=== PATIENT | male | born 1955 | race Caucasian/White ===

== ENCOUNTER 2021-02-26 11:08 | Emergency (ER) | payer OTHER, SELFPAY ==
[2021-02-26] VITALS (7 sets, daily range): BP systolic 133–149; BP diastolic 68–90; PULSE 71–100; RESP 16–18; TEMP 36.2; O2SAT 97–100; BMI 23.6
--- NOTE | 2021-02-26 11:26 | EKG12_ITS ---
Test Reason : ABDOMINAL PAIN Blood Pressure : / mmHG Vent. Rate : 072 BPM Atrial Rate : 312 BPM P-R Int : 000 ms QRS Dur : 128 ms QT Int : 448 ms P-R-T Axes : 000 008 119 degrees QTc Int : 490 ms Sinus rhythm Left bundle branch block Abnormal ECG Confirmed by ALEC CAMPOS, NERY ([id number]), slot editor ROCIO DAWKINS ([id number]) on 03/01/2021 8:01:56 AM Referred By: LEEANNA Confirmed By:ERNIE MICHAEL MD
--- NOTE | 2021-02-26 11:27 | EDS_ITS ---
HPI HPI - GI History of Present Illness Chief Complaint: Abd Pain Narrative Narrative: 65-year-old male presenting with nausea/vomiting as well as epigastric pain which started this morning. He states he ate beans, eggs, salsa, beef for breakfast. He states he ate this every day. Afterwards he vomited. He states that initially had some pain across the upper abdomen and radiated to his back. Patient states he only drinks 2 glasses of wine daily. He did not have any pain last night while drinking. No history of pancreatitis or gallbladder disease. He does have a history of hypertension and three-vessel CABG distantly. He states he is only on losartan for high blood pressure. Patient denies fever or chills. He denies diarrhea or constipation. He denies urinary complaints. He denies chest pain or shortness of breath. [facility] Medical History HTN (hypertension) Home Medications losartan mg PO DAILY 06/18/14 [History Last Taken Unknown] Allergy/AdvReac Type Severity Reaction Status Date / Time No Known Allergies Allergy Verified 06/18/14 01:15 Surgical History History of open heart surgery Social History Smoking Status: Former smoker ROS ROS ED Constitutional Constitutional ED: Denies chills, fever(s) or sweats ENT ENT ED: Denies rhinorrhea or sore throat Cardiovascular Cardiovascular: Denies chest pain or palpitations Respiratory/Chest Respiratory/Chest: Denies cough, dyspnea or sputum Gastrointestinal Gastrointestinal: Reports abdominal pain and vomiting; Denies constipation or diarrhea Genitourinary Genitourinary ED: Denies dysuria or hematuria Musculoskeletal Musculoskeletal: Denies arthralgias, back pain, myalgias or neck pain Integumentary Denies Abrasions or rash Neurologic Neurologic: Denies headache(s) or paresthesias EXAM Physical Exam Const Vital Signs: 02/26/21 11:08 02/26/21 13:42 02/26/21 15:00 Temperature 97.1 F L Temperature Source Temporal Pulse Rate 83 71 Respiratory Rate 18 18 16 Blood Pressure 149/68 H 133/73 H Blood Pressure Mean 95 93 Pulse Ox 100 99 Oxygen Delivery Method Room Air Room Air 02/26/21 15:56 02/26/21 17:00 Temperature Temperature Source Pulse Rate 74 Respiratory Rate 18 16 Blood Pressure 137/72 H Blood Pressure Mean 93 Pulse Ox 97 Oxygen Delivery Method Room Air Positive well nourished General Appearance ED: NAD HEENT Reports moist mucous membranes normocephalic and atraumatic Eyes PERRL and EOMs intact bilaterally General Eye ED: Negative for pale conjunctiva or scleral icterus Resp normal respiratory effort and clear to auscultation bilaterally Cardio regular rate and regular rhythm GI non-distended Palpation: soft and tender epigastric Extremity full ROM General Extremety ED: Negative for edema or tenderness General Extremity: Negative for edema Neuro CN's II-XII intact bilaterally and no sensory deficits noted Sensorium / Orientation: alert, oriented to person, oriented to place and oriented to time Motor Exam: strength 5/5 throughout Psych mental status grossly normal and thought process normal Skin No no wounds General Skin Exam: Negative for jaundice Lesions: no lesions Rashes: no rashes MDM MDM MDM Narrative Medical decision making narrative: Patient presenting with epigastric pain as well as nausea and vomiting. He states this started this morning and last night he was well. Given the location of his pain I did check an EKG which on my interpretation shows sinus rhythm with a ventricular rate of 72 bpm with left bundle branch block pattern. I do not have any previous EKGs to compare this to. Troponin is 6. CBC shows his white blood cell count is 9.4, hemoglobin 14.1, hematocrit 42.7 platelets 183. Renal function and electrolytes are normal. LFTs are elevated with his bilirubin being 1.4, AST 47. Lipase is 23,000 496. EtOH is negative. Chest x-ray on my interpretation shows bibasilar interstitial opacities and the radiologist does agree. I did job placement counselor the patient of the findings and he states that he was just tested last week and was negative. He does not have a respiratory complaint. Patient's ultrasound shows dilation of the pancreatic and common bile duct. CT of the abdomen pelvis shows pancreatitis and a small left inguinal hernia which is not incarcerated acute BMP patient was discussed with Dr. Arias who stated that she would for the patient not be kept at [facility] because she cannot perform ERCP. Patient was consented for transfer. There was a delay in his care and he required multiple doses of morphine for pain control. Patient was accepted to [facility] and will be transferred in stable condition. Impression: 1. Acute pancreatitis 2. Dilated common bile duct 3. Dilated pancreatic duct 4. Left inguinal hernia Lab Data Labs: Laboratory Results - last 24 hr 02/26/21 02/26/21 02/26/21 11:23 11:23 11:44 WBC 9.4 RBC 4.41 L Hgb 14.1 Hct 42.7 MCV 96.8 H MCH 32.0 MCHC 33.0 RDW Std Deviation 43.6 RDW Coeff of Beatriz 12.1 Plt Count 183 MPV 10.2 Immature Gran % (Auto) 0.300 Neut % (Auto) 83.3 H Lymph % (Auto) 10.1 L [place] % (Auto) 6.0 Eos % (Auto) 0.1 Baso % (Auto) 0.2 Absolute Neuts (auto) 7.9 H Absolute Lymphs (auto) 0.95 Nucleated RBC % 0 Sodium 135 L Potassium 3.9 Chloride 102 Carbon Dioxide 25.0 Anion Gap 8 BUN 15 Creatinine 0.78 Estim Creat Clear Calc 98.79 Est GFR (MDRD) Af Amer 129 Est GFR (MDRD) Non-Af 106 BUN/Creatinine Ratio 19.2 Glucose 174 H Calcium 9.0 Total Bilirubin 1.40 H AST 47 H ALT 30 Alkaline Phosphatase 75 Troponin I High Sens 6 Total Protein 8.1 Albumin 3.8 Globulin 4.3 H Albumin/Globulin Ratio 0.9 Lipase 73919 H Ethyl Alcohol 02/26/21 11:44 WBC RBC Hgb Hct MCV MCH MCHC RDW Std Deviation RDW Coeff of Beatriz Plt Count MPV Immature Gran % (Auto) Neut % (Auto) Lymph % (Auto) [place] % (Auto) Eos % (Auto) Baso % (Auto) Absolute Neuts (auto) Absolute Lymphs (auto) Nucleated RBC % Sodium Potassium Chloride Carbon Dioxide Anion Gap BUN Creatinine Estim Creat Clear Calc Est GFR (MDRD) Af Amer Est GFR (MDRD) Non-Af BUN/Creatinine Ratio Glucose Calcium Total Bilirubin AST ALT Alkaline Phosphatase Troponin I High Sens Total Protein Albumin Globulin Albumin/Globulin Ratio Lipase Ethyl Alcohol < 3.0 Radiography Diagnostic Testing: Radiology Impression Chest X-Ray 02/26/21 11:45 IMPRESSION: Bilateral basal interstitial opacities, probably viral/Covid pneumonia. Electronically Signed: Akanksha Henson MD at 12:25 EDT Tel , Service support , Gallbladder Ultrasound 02/26/21 12:09 IMPRESSION: Mild dilatation of the pancreatic and common bile duct. The gallbladder is distended but there is no evidence of cholelithiasis or cholecystitis. If indicated further evaluation with MRCP may be beneficial. at 1418 Reported and signed by: Dewayne Parson MD Electronically Signed: Dewayne Parson MD at 14:17 EDT Tel , Service support , Abdomen/Pelvis CT 02/26/21 14:22 IMPRESSION: 1. Inflammation surrounding the pancreas compatible with acute pancreatitis. There are no focal fluid collections identified. 2. Left inguinal hernia which contains a portion of the colon within the hernia sac. There is no obstruction. Individualized dose optimization techniques were used for this CT. at 1605 Reported and signed by: Dewayne Parson MD Electronically Signed: Dewayne Parson MD at 16:04 EDT Tel , Service support , Discharge Plan Triage Chief Complaint: Abd Pain ED Provider: Refugio Pearce Dx/Rx/DC Orders Prescriptions: No Action losartan 25 MG tablet PO DAILY RF: 0 Primary Care Provider: Ricardo Phillip
[2021-02-26 11:28] LABS: Absolute Lymphocyte Count 0.95 X10^3/uL (0.83-4.51); Absolute Neutrophil Count 7.9 X10^3/uL (2.0-7.7); Basophil# 0.02 X10^3/uL; Basophil% 0.2 % (0-1); Eosinophil# 0.01 X10^3/uL; Eosinophils% 0.1 % (0-5); Hematocrit 42.7 % (40-54); Hemoglobin 14.1 g/dL (13.0-16.5); Lymphocyte # 0.95 X10^3/ul (0.83-4.51); Lymphocyte % 10.1 % (19-41); Mean Corpuscular Volume 96.8 fL (80-94); Mean Platelet Vol. 10.2 fl (6.2-12.0); Monocyte# 0.57 X10^3/uL; NRBC Flagged by Analyzer 0 % (0-5); Neutrophil # 7.85 X10^3/uL (2.7-7.7); Neutrophil % 83.3 % (47-70); Platelet Count 183 K/mm3 (150-450); RBC Distribution Width CV 12.1 % (11.6-14.6); RBC Distribution Width SD 43.6 fl (35.1-43.9); Red Blood Count 4.41 M/mm3 (4.6-6.2); White Blood Count 9.4 K/mm3 (4.4-11.0)
[2021-02-26] MEDS: 0.9% Normal Saline 1,000 ML 1000 ML IV (11:30)
[2021-02-26] MEDS: Morphine 4 MG/ML Syringe IV ×3 (11:30→15:56)
[2021-02-26] MEDS: Ondansetron 4 MG/2 ML Vial IV (11:30)
--- NOTE | 2021-02-26 11:45 | RAD_ITS ---
STUDY: X-RAY CHEST REASON FOR EXAM: Male, 65 years old. epigastric pain TECHNIQUE: Frontal portable view of the chest COMPARISON: None. FINDINGS: There are irregular interstitial opacities bilaterally in the lower lung bases. There is no pneumothorax, pulmonary edema or pleural effusions. The heart is mildly enlarged with prior sternotomy. Left atrial appendage is surgically excluded. RAD/Chest 1 View (Portable) IMPRESSION: Bilateral basal interstitial opacities, probably viral/Covid pneumonia. Electronically Signed: Akanksha Henson MD at 12:25 EDT Tel , Service support ,
[2021-02-26 11:59] LABS: ALB/GLOB Ratio 0.9 RATIO (0.9-2.4); AST(SGOT) 47 U/L (15-37); Alanine Aminotransfer ALT/SGPT 30 U/L (16-61); Albumin, Serum 3.8 g/dL (3.2-5.0); Alkaline Phosphatase 75 U/L (45-117); Anion Gap 8 (5-15); BUN 15 mg/dL (7-18); BUN/Creat Ratio 19.2 RATIO (10-20); Chloride 102 mmol/L (98-107); Creatinine, Serum 0.78 mg/dL (0.70-1.30); EST Glomerular Filtration Rate 106 mL/min (>60); Est Glom Filt Rate - Afr Amer 129 mL/min (>60); Estimated Creatinine Clearance 98.79 ml/min; Globulin 4.3 g/dL (2.2-4.2); Glucose 174 mg/dL (74-106); Lipase 23496 U/L (73-393); Potassium 3.9 mmol/L (3.5-5.1); Protein, Total 8.1 g/dL (6.4-8.2); Sodium Level 135 mmol/L (136-145)
--- NOTE | 2021-02-26 12:09 | US_ITS ---
EXAM: US ABDOMEN LIMITED, RIGHT UPPER QUADRANT : 1955 CLINICAL INDICATION: RUQ pain TECHNIQUE: Real-time ultrasound of the right upper quadrant with image documentation. This report was created using [employer] report generation technology. COMPARISON: None. FINDINGS: LIVER: Liver measures 18.8 cm. There is normal echotexture. No intrahepatic biliary ductal dilation. GALLBLADDER: Gallbladder is distended. The gallbladder wall measures 2 mm. No shadowing gallstone. No pericholecystic fluid. Negative sonographic Hall's sign. COMMON BILE DUCT: Common bile duct measures 7 mm. The proximal common bile duct is within normal limits for the patient's age. PANCREAS: Pancreatic duct is dilated measuring 4 mm. RIGHT KIDNEY: The right kidney measures 10.7 x 4.6 x 5.3 cm. There is no hydronephrosis. No shadowing calculus. No focal lesion or perinephric collection is demonstrated. US/Gallbladder IMPRESSION: Mild dilatation of the pancreatic and common bile duct. The gallbladder is distended but there is no evidence of cholelithiasis or cholecystitis. If indicated further evaluation with MRCP may be beneficial. at 1418 Reported and signed by: Dewayne Parson MD Electronically Signed: Dewayne Parson MD at 14:17 EDT Tel , Service support ,
[2021-02-26 12:15] LABS: Troponin-I HS 6 pg/mL (3.0-78.0)
[2021-02-26 12:21] LABS: Alcohol, Blood (Medical)-Serum < 3.0 mg/dL
--- NOTE | 2021-02-26 14:22 | CT_ITS ---
EXAM: CT ABDOMEN AND PELVIS WITH INTRAVENOUS CONTRAST : 1955 CLINICAL INDICATION: abdominal pain TECHNIQUE: Helically acquired images were obtained of the abdomen and pelvis with intravenous contrast. This CT exam was performed using one or more of the following dose reduction techniques: automated exposure control, adjustment of the mA and/or kV according to patient size, and/or use of iterative reconstruction technique. This report was created using [employer] report generation technology. CONTRAST: IV 100mL Isovue-300 COMPARISON: None. FINDINGS: LOWER THORAX: There is mild airspace disease in the left base. No cardiomegaly. No significant pericardial effusion. ABDOMEN: LIVER: Unremarkable. Homogeneous. No focal mass. GALLBLADDER AND BILE DUCTS: Unremarkable. No calcified gallstones. No gallbladder distention or wall edema. No intra- or extrahepatic biliary ductal dilation. PANCREAS: See below. SPLEEN: Unremarkable. Normal size without focal cystic or solid mass. ADRENALS: Unremarkable. No nodules. KIDNEYS AND URETERS: Unremarkable. Normal renal size and position. No hydronephrosis. STOMACH AND BOWEL: There is a left inguinal hernia which Eanes a portion of the colon within the hernia sac. No stomach or bowel distention. No focal inflammatory change. PELVIS: APPENDIX: No evidence of acute appendicitis. BLADDER: Unremarkable. REPRODUCTIVE: Unremarkable as visualized. No mass. ABDOMEN and PELVIS: INTRAPERITONEAL SPACE: There is inflammation surrounding the pancreas. There is a trace amount of free fluid compatible with pancreatitis. There is no focal fluid collection identified. No free air. BONES/JOINTS: There is beam hardening artifact in the pelvis due to a right hip prosthesis. No suspicious lytic or blastic abnormality. SOFT TISSUES: See above. VASCULATURE: Unremarkable. Abdominal aorta is non-dilated. LYMPH NODES: Unremarkable. No enlarged lymph nodes. CT/Abdomen/Pelvis W IV Cont ONLY IMPRESSION: 1. Inflammation surrounding the pancreas compatible with acute pancreatitis. There are no focal fluid collections identified. 2. Left inguinal hernia which contains a portion of the colon within the hernia sac. There is no obstruction. Individualized dose optimization techniques were used for this CT. at 1605 Reported and signed by: Dewayne Parson MD Electronically Signed: Dewayne Parson MD at 16:04 EDT Tel , Service support ,
== END 2021-02-26 20:59 | disposition short-term general hospital (02) ==
PROVIDERS: Emergency Provider Student in an Organized Health Care Education/Training Program; PCP Family Medicine
DX: K85.90 Acute pancreatitis without necrosis or infection, unspecified (principal); K40.90 Unilateral inguinal hernia, without obstruction or gangrene, not specified as recurrent; K83.8 Other specified diseases of biliary tract; I10 Essential (primary) hypertension; Z95.1 Presence of aortocoronary bypass graft; Z79.899 Other long term (current) drug therapy; Z87.891 Personal history of nicotine dependence
CPT/HCPCS: 71045; 74177; 76705; 80053; 82077; 83690; 84484; 85025; 87426; 93005; 96361; 96374; 96375; 96376; 99285; J7030; Q9967; A4216; J2405

== ENCOUNTER 2021-09-29 19:19 | Emergency (ER) | payer OTHER, SELFPAY ==
[2021-09-29 19:20] VITALS: BP 160/75; PULSE 84; RESP 18; TEMP 35.9; O2SAT 99; BMI 24.7
--- NOTE | 2021-09-29 19:41 | EKG12_ITS ---
Test Reason : EPIGASTRICPAIN Blood Pressure : / mmHG Vent. Rate : 085 BPM Atrial Rate : 085 BPM P-R Int : 220 ms QRS Dur : 126 ms QT Int : 434 ms P-R-T Axes : 070 028 096 degrees QTc Int : 516 ms Sinus rhythm with 1st degree A-V block with Premature atrial complexes Left bundle branch block Abnormal ECG Confirmed by ROMEO CAMPOS, LIA ([id number]), news videotape editor RICKI SHINE ([id number]) on 10/05/2021 11:02:48 AM Referred By: Confirmed By:LIA WALTERS MD
[2021-09-29] MEDS: Ketorolac 15 MG/ML Vial IV (19:46)
[2021-09-29] MEDS: Ondansetron 4 MG/2 ML Vial IV (19:46)
[2021-09-29 19:51] LABS: Absolute Lymphocyte Count 0.75 X10^3/uL (0.83-4.51); Absolute Neutrophil Count 6.2 X10^3/uL (2.0-7.7); Basophil# 0.02 X10^3/uL; Basophil% 0.3 % (0-1); Hematocrit 41.1 % (40-54); Hemoglobin 13.8 g/dL (13.0-16.5); Lymphocyte # 0.75 X10^3/ul (0.83-4.51); Lymphocyte % 10.4 % (19-41); Mean Corp Hgb Conc 33.6 g/dL (32-36); Mean Corpuscular Volume 95.4 fL (80-94); Mean Platelet Vol. 10.4 fl (6.2-12.0); Monocyte# 0.26 X10^3/uL; Monocyte% 3.6 % (0-10); NRBC Flagged by Analyzer 0 % (0-5); Neutrophil # 6.17 X10^3/uL (2.7-7.7); Neutrophil % 85.3 % (47-70); Platelet Count 182 K/mm3 (150-450); RBC Distribution Width CV 12.3 % (11.6-14.6); RBC Distribution Width SD 43.8 fl (35.1-43.9); Red Blood Count 4.31 M/mm3 (4.6-6.2); White Blood Count 7.2 K/mm3 (4.4-11.0)
[2021-09-29 20:19] LABS: ALB/GLOB Ratio 0.9 RATIO (0.9-2.4); AST(SGOT) 77 U/L (15-37); Alanine Aminotransfer ALT/SGPT 60 U/L (16-61); Albumin, Serum 3.7 g/dL (3.2-5.0); Alkaline Phosphatase 132 U/L (45-117); Anion Gap 9 (5-15); BUN 14 mg/dL (7-18); BUN/Creat Ratio 17.8 RATIO (10-20); Chloride 102 mmol/L (98-107); Creatinine, Serum 0.79 mg/dL (0.70-1.30); EST Glomerular Filtration Rate 105 mL/min (>60); Est Glom Filt Rate - Afr Amer 127 mL/min (>60); Estimated Creatinine Clearance 93.22 ml/min; Globulin 4.2 g/dL (2.2-4.2); Glucose 170 mg/dL (74-106); Lipase 11841 U/L (73-393); Potassium 3.4 mmol/L (3.5-5.1); Protein, Total 7.9 g/dL (6.4-8.2); Sodium Level 136 mmol/L (136-145)
[2021-09-29 20:22] LABS: Glucose, Dipstick Normal (Normal); Leukocyte Esterase-Dipstick 25 /ul (Negative); Nitrite-Dipstick Negative (Negative); Occult Blood-Urine 150 /ul (Negative); Protein-Dipstick 30 mg/dl (Negative); Urine Bilirubin Dipstick Negative (Negative); Urine Urobilinogen 1 mg/dl (Normal); Urine pH 6.5 (5.0 - 8.0)
[2021-09-29 20:31] LABS: Color, Urine Yellow (Yellow); Ketone-Dipstick 150 mg/dl (Negative); Urine Clarity Clear (Clear)
[2021-09-29 20:36] LABS: Bacteria 1+ /hpf (None Seen); Mucous, Urine 0 SEEN /hpf (<or=2+); Red Blood Cells-Urine 10-25 SEEN /hpf (0-5); Squamous Epithelial Cells - UA 0 SEEN /hpf (0-5); White Blood Cells 0-5 SEEN /hpf (0-5)
--- NOTE | 2021-09-29 21:22 | ED.VIS.GI ---
HPI HPI - GI History of Present Illness Chief Complaint: Abd Pain Detail of Chief Complaint: Acute upper abdominal pain with nausea Informant: patient and spouse/S.O. 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 States this is not as severe as when he was dying noticed with pancreatitis. He denies fever, chills night sweats. He denies ocular, visual auditory symptoms. He denies trouble with speech or swallowing. He denies cardiac or respiratory symptoms. He denies black or maroon-colored stool. He denies dysuria, frequency, urgency or hematuria. There is no history of trauma Prior similar symptoms: Yes Recent Illness/Hospitalization: No PFSH PFSH Medical History (Updated 09/29/21 @ 21:[address] Juan Cortez MD) HTN (hypertension) Pancreatitis Home Medications losartan 25 mg PO DAILY 06/18/14 [History Last Taken Unknown] azithromycin 250 mg PO DAILY 09/29/21 [History Last Taken Unknown] ondansetron 4 mg PO Q8H PRN PRN #10 tab 09/29/21 [Rx Last Taken Unknown] oxycodone-acetaminophen 1 tab PO Q6H PRN PRN 5 Days #20 tablet 09/29/21 [Rx Last Taken Unknown] Allergy/AdvReac Type Severity Reaction Status Date / Time No Known Allergies Allergy Verified 09/29/21 19:22 Surgical History History of open heart surgery Social History (Updated 09/29/21 @ 21:[address] Juan Cortez MD) household members: spouse Smoking Status: Former smoker substance use type: does not use ROS ROS ED Constitutional Constitutional ED: Denies chills, fever(s), subjective or sweats ENT ENT ED: Denies ear pain, rhinorrhea or sore throat Cardiovascular Cardiovascular: Denies chest pain, palpitations or racing heartbeat Respiratory/Chest Respiratory/Chest: Denies cough, dyspnea or dyspnea on exertion Gastrointestinal Gastrointestinal: Reports abdominal pain and nausea; Denies constipation, diarrhea or melena Genitourinary Genitourinary ED: Denies dysuria, hematuria or urinary frequency Musculoskeletal Musculoskeletal: Denies arthralgias, back pain, myalgias or neck pain Integumentary Denies abscess, Abrasions or rash Neurologic Neurologic: Denies headache(s), paresthesias or weakness Endocrine Endocrinology: Denies polydipsia, polyphagia or polyuria Hematologic/Lymphatic Hematologic/Lymphatic: Denies easy bleeding or easy bruising EXAM Physical Exam Const Vital Signs: 09/29/21 19:20 Temperature 96.7 F L Temperature Source Temporal Pulse Rate 84 Respiratory Rate 18 Blood Pressure 160/75 H Blood Pressure Mean 103 Pulse Ox 99 Oxygen Delivery Method Room Air Positive well nourished and well developed General Appearance ED: well developed and other Gil appears uncomfortable. He appears jaundiced as well. ; Negative for NAD or pallor HEENT Reports TM's clear and moist mucous membranes HEENT Narrative: Uvula midline. There is no angioedema. normocephalic and atraumatic Tympanic Membrane ED: Yes TM's clear Eyes PERRL and EOMs intact bilaterally General Eye ED: Yes scleral icterus; Negative for pale conjunctiva Neck no lymphadenopathy, supple and no JVD Resp normal respiratory effort Cardio regular rate, regular rhythm, S1 normal heart sound, S2 normal heart sound and no murmurs GI no masses; Negative for non-tender or non-distended Inspection: abdominal distention and other Other Details: Abdomen is tympanic and firm. It is not rigid. Auscultation: hypoactive bowel sounds; Negative for normoactive bowel sounds Palpation: soft, tender epigastric and LUQ and guarding LUQ; Negative for rigid, hepatomegaly, splenomegaly, hernia, mass, pulsatile mass or rebound tenderness present Back/Spine no CVA tenderness Cervical Spine: Negative for cervical spine tenderness Thoracic Spine / Upper Back: Negative for thoracic spinal tenderness Lumbar Spine / Lower Back: Negative for lumbar spinal tenderness Extremity full ROM General Extremety ED: Negative for edema or tenderness General Extremity: Negative for edema Neuro CN's II-XII intact bilaterally and moves all extremities Sensorium / Orientation: alert, oriented to person, oriented to place and oriented to time Psych mental status grossly normal and thought process normal Skin no wounds General Skin Exam: jaundice; Negative for pallor Lesions: no lesions Rashes: no rashes MDM MDM MDM Narrative Medical decision making narrative: Patient appears jaundiced. With prior history of pancreatitis/gallstone pancreatitis will obtain comprehensive metabolic panel. CBC, lipase. He was medicated with Toradol, Dilaudid and Zofran. He declined the Dilaudid. Prior ultrasound of the gallbladder was normal. Patient feels comfortable going home. Was discharged prescription for Percocet and will follow up with his primary care physician. He states his pain is minimal, 2 out of 10 Lab Data Attestation: I reviewed the patient's lab results. Labs: Laboratory Results - last 24 hr 09/29/21 09/29/21 09/29/21 19:35 19:35 20:13 WBC 7.2 RBC 4.31 L Hgb 13.8 Hct 41.1 MCV 95.4 H MCH 32.0 MCHC 33.6 RDW Std Deviation 43.8 RDW Coeff of Beatriz 12.3 Plt Count 182 MPV 10.4 Immature Gran % (Auto) 0.400 Neut % (Auto) 85.3 H Lymph % (Auto) 10.4 L [place] % (Auto) 3.6 Eos % (Auto) 0.0 Baso % (Auto) 0.3 Absolute Neuts (auto) 6.2 Absolute Lymphs (auto) 0.75 L Nucleated RBC % 0 Sodium 136 Potassium 3.4 L Chloride 102 Carbon Dioxide 25.0 Anion Gap 9 BUN 14 Creatinine 0.79 Estim Creat Clear Calc 93.22 Est GFR (MDRD) Af Amer 127 Est GFR (MDRD) Non-Af 105 BUN/Creatinine Ratio 17.8 Glucose 170 H Calcium 9.0 Total Bilirubin 1.30 H AST 77 H ALT 60 Alkaline Phosphatase 132 H Total Protein 7.9 Albumin 3.7 Globulin 4.2 Albumin/Globulin Ratio 0.9 Lipase 10281 H Urine Color Yellow Urine Clarity Clear Urine pH 6.5 Ur Specific [place] 1.020 Urine Protein 30 H Urine Glucose (UA) Normal Urine Ketones 150 A* Urine Occult Blood 150 H Urine Nitrite Negative Urine Bilirubin Negative Urine Urobilinogen 1 H Ur Leukocyte Esterase 25 H Urine RBC 10-25 SEEN Urine WBC 0-5 SEEN Ur Squamous Epith Cells 0 SEEN Urine Bacteria 1+ Urine Mucus 0 SEEN Urine is remarkable for ketones, hematuria and back Curia without pyuria. Lipase is 11,841. Transaminases are slightly elevated. Total bili is 1.3 Discharge Plan Triage Chief Complaint: Abd Pain ED Provider: Juan Cortez Dx/Rx/DC Orders Clinical Impression: Acute pancreatitis, Hypertension Instructions: ED Pancreatitis Prescriptions: New oxycodone-acetaminophen [oxycodone-acetaminophen] 1 TABLET tablet 1 tab PO Q6H PRN PRN (Reason: pain) 5 Days Qty: 20 RF: 0 ondansetron [ondansetron] 4 MG tablet 4 mg PO Q8H PRN PRN (Reason: Nausea) Qty: 10 RF: 0 No Action losartan 25 MG tablet 25 mg PO DAILY RF: 0 azithromycin 250 mg tablet 250 mg PO DAILY RF: 0 Primary Care Provider: Ricardo Phillip Referrals: Ricardo Phillip MD [Primary Care Provider] - 3-5 Days Activity Restrictions/Additional Instructions: Since you have no history of gallstones the probable cause of your bouts of pancreatitis may be related to alcohol. Would recommend abstaining. Disposition Disposition: Home, Self Care
== END 2021-09-29 21:44 | disposition home or self-care (01) ==
PROVIDERS: Emergency Provider Emergency Medicine; PCP Family Medicine; Visit Provider Emergency Medicine
DX: K85.90 Acute pancreatitis without necrosis or infection, unspecified (principal); Z87.891 Personal history of nicotine dependence; I10 Essential (primary) hypertension; Z79.899 Other long term (current) drug therapy
CPT/HCPCS: 80053; 81002; 83690; 85025; 93005; 96374; 96375; 99283; A4216; J2405